=== PATIENT | female | born 1965 | race Two or more races ===

== ENCOUNTER 2018-07-20 13:00 | Outpatient (AMBR) | payer MEDICARE, MEDICAID, SELFPAY ==
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
--- NOTE | 2018-07-08 15:16 | PTNOTE_ITS ---
PT Outpatient Daily Note Date of Service: July 08, 2018 OP Daily Note Visit Reasons: knee pain Outpatient Physical Therapy Treatment Date: 07/08/18 Subjective: Pt has been bending the knee at home and can bend better now. Objective: See F/S for therex PROM of knee flexion: 115 deg MT: PPM into knee flexion with 20 second holds with overpressure x10' total Assessment: Very good improvement with knee flexion PROM and decreased pain level since eval. She can WB with less pain but tends to move into valgus position. Plan: Continue per POC Length of Time (minutes) of Treatment: 30 Minutes Office Procedures PT Outpatient G-Codes Date of Service PT Date of Service: 07/06/18 G-Codes Changing & Maintaining Body Post Body Position Current Status G-Code: G8981: CK 40-60% Body Position Goal Status G-Code: G8982: CJ 20-40% PT Procedures PT Date of Service: 07/06/18 OP PT Eval Mod Complex 30 minutes: Yes PT Procedures PT Date of Service: 07/08/18 Therapeutic Exercise 15 minutes: Yes Manual Sr. Manager Marketing 15 minutes: Yes
--- NOTE | 2018-07-21 17:06 | PTNOTE_ITS ---
PT Outpatient Daily Note Date of Service: July 20, 2018 OP Daily Note Visit Reasons: knee pain Outpatient Physical Therapy Treatment Date: 07/20/18 Subjective: Pt reports the knee is not hurting her and she is able to walk her normal distances. Objective: See F/S for therex Assessment: Good exercise tolerance with low tissue irritability with squats and WB activities Plan: Continue per POC Length of Time (minutes) of Treatment: 30 Minutes Office Procedures PT Outpatient G-Codes Date of Service PT Date of Service: 07/06/18 G-Codes Changing & Maintaining Body Post Body Position Current Status G-Code: G8981: CK 40-60% Body Position Goal Status G-Code: G8982: CJ 20-40% PT Procedures PT Date of Service: 07/06/18 OP PT Eval Mod Complex 30 minutes: Yes PT Procedures PT Date of Service: 07/08/18 Therapeutic Exercise 15 minutes: Yes Manual Cafeteria Clerk 15 minutes: Yes PT Procedures PT Date of Service: 07/21/18 Therapeutic Exercise 30 minutes: Yes
== END 2018-07-22 23:59 | disposition home or self-care (01) ==
PROVIDERS: PCP Physician Assistant; Referring Provider Physician Assistant; Visit Provider Orthopaedic Surgery
DX: M25.561 Pain in right knee (principal)
CPT/HCPCS: 97110; 97140; 97162; G8981; G8982